=== PATIENT | female | born 1955 | race Asian ===

== ENCOUNTER → 2019-02-24 | Day surgery (SDC) | payer BC ==
[~2019-02-24] MED LIST: ALENDRONATE SODI5 MG PO; ALLOPURINOL300 MG PO; ATENOLOL50 MG PO; CALCIUM PO; EXFORGE 5-3201 EACH PO; FISH OIL 1,0001 EAC2 PO; LIDOCAINE HCL 2% LOCAL INJ 5 ML SDV VIAL INJ ONE; PROPOFOL IV EMULSION 10 MG/ML 20 ML VIAL ONE; TUMERIC CURCUMIN PO; VITAMIN D1000 UNI1 PO
--- OUTSIDE RECORDS SUMMARY | 2019-02-24 11:28 | XMS REPORT ---
Author Author [facility] Address Unknown Phone Unavailable Care Team Providers Care [facility] [employer] [facility] Manager Name Role Phone Unavailable Unavailable Problems This patient has no known problems. Allergies, Adverse Reactions, Alerts This patient has no known allergies or adverse reactions. Medications This patient has no known medications. Encounters Start Date/Time End Date/Time Encounter Type Admission Type Attending Clinicians Care Facility Care Department Encounter ID 2019-01-13 11:24:46 Outpatient [facility] [id number]
[2019-02-24 14:25] VITALS: BP 102/73
== END | disposition home or self-care (01) ==
LOC: OR 11:21
PROVIDERS: ATTEND Internal Medicine Gastroenterology
DX: Z12.11 Encounter for screening for malignant neoplasm of colon (principal); I10 Essential (primary) hypertension; Z80.3 Family history of malignant neoplasm of breast; Z83.71 Family history of colonic polyps; Z85.3 Personal history of malignant neoplasm of breast; K57.30 Diverticulosis of large intestine without perforation or abscess without bleeding; K64.8 Other hemorrhoids; Z01.810 Encounter for preprocedural cardiovascular examination
CPT/HCPCS: 45378; 93005; J2001; J2704